=== PATIENT | male | born 1945 | race Caucasian/White ===

== ENCOUNTER → 2024-01-25 09:55 | Outpatient (REF) | payer MEDICARE, BC, SELFPAY | LOC: DHCBS HW 09:55 | PROVIDERS: ATTENDING PHYSICIAN Internal Medicine Cardiovascular Disease; FAMILY PHYSICIAN Family Medicine | DX: R42 Dizziness and giddiness (principal); I65.21 Occlusion and stenosis of right carotid artery | CPT/HCPCS: 93306; 93880 ==

== ENCOUNTER 2025-02-26 12:21 | Observation (INO) | payer MEDICARE, BC, SELFPAY ==
[2025-02-26] VITALS (14 sets, daily range): BP systolic 93–180; BP diastolic 53–100; PULSE 83–99; BMI 21.7; BMI 20.8
--- NOTE | 2025-02-26 09:16 | EDRN ---
Dr. Montenegro in room w/ pt at this time.
--- NOTE | 2025-02-26 09:24 | ED.GENMED ---
History of Present Illness
General
Chief Complaint: Weakness
Source: patient
Exam Limitations: none
Time Seen by Provider: 02/26/25 09:15
History of Present Illness
History of Present Illness:
See MDM
Past History
Past History
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
ED Past Surgical History: Appendectomy, Bowel resection (Left hemicolectomy) and Other (Cataract removal); Negative Cardiac
Social History
Tobacco: Non-smoker
Alcohol: Occasional
Drug: None
Personal:
Living: with family
Employment: Employed
Family History
Family History: Hypertension and CAD
Phy Exam
Physical Exam
Physical Exam:
See MDM
Scores
NIH Stroke Score
Level of Consciousness: 0 - Alert
LOC Questions: 0-Answers both correctly
LOC Commands: 0-Performs both correctly
Best Horizontal Gaze: 0-Normal
Visual Wang: 0=Normal, no visual loss
Facial Palsy: 0=Normal, symmetrical
Motor - Right Arm: 0=No drift 10 seconds
Motor - Left Arm: 0=No drift 10 seconds
Motor - Right Le-No drift 5 seconds
Motor - Left Le-No drift 5 seconds
Limb Ataxia: 0-Absent
Sensation: 0-Normal
Best Language: 0-No aphasia
Dysarthria: 0-Normal
Extinction and Inattention: 0-No abnormality
NIH Total Score:: 0
Course
Orders/Labs/Results
Orders:
Orders
02/26/25 09:21
CT Head W/o Iv Contrast Urgent
Comment:
Reason For Exam: fall, leaning to R, intermittent aphasia
Urinalysis Reflex To Culture Urgent
02/26/25 09:22
Electrocardiogram (*1) Urgent
Reason for Study: Fatigue / Weakness
EKG- Treatment ONCE
02/26/25 09:35
Complete Blood Count/With Diff Urgent
Comprehensive Metabolic Panel Urgent
02/26/25 09:49
DIETARY IP CONSULT Routine
Reason for Consult: failed swallow test
Speech Therapy Eval & Treat Urgent
02/26/25 Lunch
NPO
Reason for opting out of [employer] order writing: Provider Decision
Allow oral meds: No
Allow clear liquids: No
NPO with Ice Chips: No
02/26/25 10:22
0.9% Sodium Chloride 1000 ml [Nss] 1,000 ml IV BOLUS
Abnormal Lab Results
02/26/25
09:35
RBC 4.06 L 10^6/uL
(4.70-6.10)
Hgb 11.6 L g/dL
(13.0-18.0)
Hct 35.8 L %
(39.0-52.0)
MCHC 32.4 L g/dL
(33.0-37.0)
MPV 11.4 H fL
(7.4-10.4)
Absolute Lymphs (auto) 0.9 L 10^3/uL
(1.2-3.4)
Neutrophils % 81.2 H %
(42.2-75.2)
Lymphocytes % 13.5 L %
(20.5-51.1)
BUN 39 H mg/dl
(9-20)
Creatinine 1.5 H mg/dL
(0.7-1.3)
Glucose 124 H mg/dl
(70-99)
02/26/25 09:35
02/26/25 09:35
Vital Signs
Initial and Last Documented VS:
Initial Vital Signs
Temp Pulse Resp BP Pulse Ox
97.4 F 85 20 106/53 96
02/26/25 09:05 02/26/25 09:05 02/26/25 09:05 02/26/25 09:05 02/26/25 09:05
Last Documented Vital Signs
Temp Pulse Resp BP Pulse Ox
97.4 F 96 14 173/96 98
02/26/25 09:05 02/26/25 10:12 02/26/25 10:12 02/26/25 10:11 02/26/25 09:53
MDM/Problems Addressed
Differential Diagnosis Includes:
HPI and MDM Narrative:
79-year-old male presenting for evaluation of fatigue and visual hallucinations. Patient does have a history of Parkinson's. Since yesterday, he has had increased weakness. He is leaning to his right. He has had frequent falls. His tremor is
worse.
On exam, patient is sitting in bed comfortably. He is in no acute distress. However, he does have a visual tremor to both hands. His NIH stroke scale is 0 but given that he was leaning to his right, I questioned any speech issues. Over the past
month, patient states he has had word finding issues.
He denies any urinary symptoms.
Will obtain CT head given fall and strokelike symptoms. Will obtain basic blood work and ultimately admit.
Physical exam
General: Well appearing and non-toxic
HEENT: protecting airway
Neck: appears supple
CV: No evidence of cyanosis. Regular rate and rhythm
Resp: No accessory muscle use
Abd: Non-distended
Extremities: No deformities
Neuro: alert. Tremors to both hands. No focal deficits
Psych: Normal affect
Skin: Intact
Problems Addressed including Acute and Chronic Conditions affecting care:
1. Generalized fatigue and frequent falls
Acuity: acute
Prognosis: stable
Details: Potentially worsening of his chronic Parkinson's. However, will obtain CT head given word finding issues and leaning to the right. Will obtain basic blood work and urinalysis
2. Acute kidney injury
Acuity: acute
Prognosis: stable
Details: Likely in setting of poor p.o. intake. Will give IV fluids
Updates
10 AM nursing indicating that patient is failing the swallow test
CT head negative. Patient found to have mild dehydration. Will give IV fluids and admit
Differential Diagnosis (but not limited to): Stroke, intracranial hemorrhage, worsening Parkinson's, UTI
Testing considered: Chest x-ray but he denies shortness of breath or cough
Drug therapy (if applicable): OTC meds, please see d/c instruction regarding Rx drugs
Amount and/or Complexity of Data Reviewed
Clinical info obtained from: Patient and
External data reviewed: N/A
Labs I independently reviewed (but not limited to): Elevated creatinine
Radiology: The CT scan was personally and independently reviewed. In addition, official CT report reviewed.
Pulse Ox: not hypoxic
EKG independently reviewed: Sinus rhythm, normal axis, no STEMI
Airport Duty Manager: N/A
Critical Care: N/A
Risk of Complication:
Social Determinants of health: Good social support
Discussed with other providers: Hospitalist
Escalation of Care includes Admit/Obs: Given the strokelike symptoms and dehydration, will admit
Occasional wrong word or 'sound a like' substitutions may have occurred due to the inherent limitations of voice recognition software. Read the chart carefully and recognize, using context, where substitutions have occurred.
*Critical Care Note
Total Time (30-74mins, 75-104mins- exclusive of procedures): Not Applicable
ED Attending Note
-
Portions of this chart may have been created with voice recognition software.� Occasional wrong word or��sound alike� substitutions may have occurred due to the inherent limitations of voice recognition software.
Discharge Plan
Departure
Patient Disposition: Admit
Date of Disposition: 02/26/25
Time of Disposition: 10:26
Admit to: Telemetry
Presentation/result/management discussed w/ accepting MD/DO: Hospitalist
Discharge Problem:
Weakness, JENNY (acute kidney injury)
Prescriptions:
No Action
multivitamin [Daily Vitamin] 1 EACH tablet
1 ea PO DAILY
atorvastatin 20 MG tablet
20 mg PO HS
sertraline 50 MG tablet
50 mg PO DAILY
Eliquis 5 MG tablet
5 mg PO BID
finasteride 5 MG tablet
5 mg PO DAILY
Referrals:
Shelby Mueller DO [Family Provider] -
Interventions
Interventions:
*Risk Screen - Suicide Last Done: 02/26/25 09:43
*General Assessment Last Done: 02/26/25 09:43
*Neglect/Abuse Screening Last Done: 02/26/25 09:43
*ED- Fall Risk Assessment Last Done: 02/26/25 09:43
*ED COVID-19 Vaccine History Last Done: 02/26/25 09:43
ED- Cardiac Assessment Last Done: 02/26/25 09:44
ED- Neurological Assessment Last Done: 02/26/25 09:48
ED- Pulmonary Assessment Last Done: 02/26/25 09:44
Discharge Date and Time
Print Language: CYMRAES
[2025-02-26 09:46] LABS: % Basophils 0.2 % (0-2); % Eosinophils 0.2 % (0-6); % Immature Granulocytes 0.3 % (0-0.5); % Lymphocytes 13.5 % (20.5-51.1); % Monocytes 4.6 % (1.7-9.3); % Neutrophils 81.2 % (42.2-75.2); Absolute Lymphocytes 0.9 10^3/uL (1.2-3.4); Absolute Monocytes 0.3 10^3/uL (0.1-0.6); Absolute Neutrophils 5.2 10^3/uL (1.4-6.5); Hematocrit 35.8 % (39.0-52.0); Hemoglobin 11.6 g/dL (13.0-18.0); Mean Corp Hgb Conc. 32.4 g/dL (33.0-37.0); Mean Corpuscular Hgb 28.6 pg (27.0-31.0); Mean Corpuscular Volume 88.2 fL (80.0-94.0); Mean Platelet Volume 11.4 fL (7.4-10.4); Nucleated Red Blood Cells % 0 % (-); Platelet Count 162 10^3/uL (130-400); Red Blood Cell Count 4.06 10^6/uL (4.70-6.10); Red Cell Dist. Width 12.9 % (11.5-14.5); White Blood Cell Count 6.4 10^3/uL (4.8-10.8)
[2025-02-26 10:06] LABS: ALT (SGPT) 29 U/L (0-50); AST (SGOT) 38 U/L (17-59); Albumin 4.4 g/dl (3.5-5.0); Alkaline Phosphatase 72 U/L (38-126); Blood Urea Nitrogen 39 mg/dl (9-20); Calcium 9.7 mg/dl (8.4-10.2); Carbon Dioxide 25 mmol/L (22-30); Chloride 106 mmol/L (98-107); Estimated Creatinine Clearance 40 ml/min; Glucose 124 mg/dl (70-99); Potassium 4.4 mmol/L (3.5-5.1); Sodium 140 mmol/L (135-145); Total Protein 7.2 g/dl (6.3-8.2); eGFR 47.65
[2025-02-26] MEDS: NSS 1000 IV (10:30)
--- NOTE | 2025-02-26 10:30 | EDRN ---
Dr. Montenegro in to see pt and speak w/ pt and family at this time.
--- NOTE | 2025-02-26 10:32 | EDRN ---
Dr. Montenegro in to see pt at this time
--- NOTE | 2025-02-26 10:40 | PTOTSP ---
Speech Language Pathology
Pt seen for clinical bedside swallow evaluation. Per , pt typically coughs with breakfast. Pt stated he thinks this happens occasionally and mostly with liquids. Only noted in the last month. No PNA hx per pt/family. This date, coughing
noted with RN swallow screen, prompting HEAD BATCHER consult. P.O. trials of puree, regular solids, and thin liquids provided. Adequate mastication, bolus formation, and A-P transit noted with no oral residue. No overt signs of aspiration. Instrumental
swallowing assessment appropriate given Parkinson's disease and reports of intermittent coughing with P.O. at home. Discussed FEES vs VSE. Pt agreeable to VSE.
Recommend:
(1) VSE 02/27
(2) Regular solids/thin liquids at this time
(3) Aspiration precautions: sit upright, slow rate, single sips only
(4) Meds as tolerated (may be best tolerated whole in puree)
(5) HEAD BATCHER to continue to follow
--- NOTE | 2025-02-26 10:40 | EDRN ---
Pt failed swallow test and speech therapy ordered. Speech therapist in room w/pt.
--- NOTE | 2025-02-26 10:57 | CON.NEURO ---
Neuro Assessment/Plan
Assessment
Prior diagnosis of Parkinsonism with severe orthostasis
Newly experiencing hallucinations with worsening confusion (in the past month)
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 Hallucinations and orthostasis are typical of end-stage parkinsonism
Plan
Replace midodrine with fludrocortisone due to variable response
Continue carbidopa/levodopa presumed to be 25/100 extended release dosed before meals
Patient may benefit from secondary medication including opicapone to provide longer acting benefit from the use of carbidopa/levodopa
Rehabilitation evaluations
Follow orthostatic blood pressures
Case management for possible placement may be needed
Continue apixaban for stroke risk
Unclear reason for the use of aspirin at this time, will discontinue
Consideration for hospice may also be given
Will follow pending results
Consultation
Order
Date of Consultation: 02/26/25
Requesting Provider: Hospitalist
Reason for Consult: PD and falling
Subjective/Objective
Subjective Data
Date of Service: February 26, 2025
Right-Handed
Patient underwent MRI of the brain in 2016
He was diagnosed with Parkinson's with a differential diagnosis of multiple system atrophy in January 2024 secondary to generalized shaking and dizziness. The patient was found to have significant orthostatic hypotension at the time of diagnosis at
[facility]. He was initiated on carbidopa levodopa CR and had improvement of tremors. The patient was described as having falling beginning in 2020. Began using a walker routinely since 02/2024, episodic use of wheelchair.
Patient was given either Midodrine 2.5 mg or Lopressor as needed, not of assistance. No assistance with abdominal binder. Didn't change diet.
Typically falling to the right.
Last night began having visual hallucinations. Confusion started in 11/2024, worsening in past month.
This morning, had increased confusion, worsening PD, significant other unable to take care of him at home. PT helping at home usually.
Falling out of a chair typically.
Objective Data
Vital Signs
Temp Pulse Resp BP Pulse Ox
36.3 C 97 16 173/96 98
02/26/25 09:05 02/26/25 10:30 02/26/25 10:30 02/26/25 10:11 02/26/25 10:30
Lab Results
02/26/25 09:35
02/26/25 09:35
Sodium 140 mmol/L (135-145) 02/26/25 09:35
Potassium 4.4 mmol/L (3.5-5.1) 02/26/25 09:35
BUN 39 mg/dl (9-20) H 02/26/25 09:35
Glucose 124 mg/dl (70-99) H 02/26/25 09:35
Calcium 9.7 mg/dl (8.4-10.2) 02/26/25 09:35
Patient Allergies
No Known Allergies Allergy (Verified 02/26/25 09:08)
Review of Systems
-
History Source: Patient
All other systems: Reviewed and negative
EENT: Swallowing Difficulty; Negative Decreased Vision
Respiratory: Negative Trouble Breathing
Cardiac: Negative Chest Pain
Abdomen/GI: Diarrhea
Genitourinary: Incontinence
Musculoskeletal: Negative Back Pain or Neck Pain
Neuro: Dizzy; Negative Headache
Physical Exam
-
General: No Apparent Distress and Appears Stated Age
Eyes: Round OU, [place] Conjunctivae and No Ptosis
HEENT: Anicteric and Moist Mucous Membranes
Neck: Full Range of Motion
Respiratory: No Dyspnea
Cardiac: No JVD
GI: Non-distended
Skin: Unremarkable
Extremities: No Clubbing, No Cyanosis and No Edema
Psych: Intact Judgement/Insight
Extended Neurological Exam
Mood & Affect: Mood Unremarkable and Affect Unremarkable
Attention Span & Concentration: Awake, Alert, Interactive and Moderate Difficulty with 2 Step Request
Memory: Able to Recall (Month and year), Reduced (For correct holiday order) and Unable to Recall Personal History (With accuracy)
Tremor: Head Tremor Absent, Distal, Amplitude (Low), Intermittent and With Action; Negative At Rest
Involuntary Movement: None
Speech: Mildly Reduced Output and Hoarse (Mildly)
Cranial Nerve II: Left Eye: Pupillary Reactivity Unremarkable, Pupillary Size Unremarkable and Visual Wang Intact
Cranial Nerve II: Right Eye: Pupillary Reactivity Unremarkable, Pupillary Size Unremarkable, Visual Wang Intact and Smaller than Contralateral
Cranial Nerves III, IV, : Extraocular Movement: Extraocular Movement Full in all Directions; Negative Slow Saccades (Irregular saccades)
Cranial Nerve VII: Facial Symmetry: Normal Facial Symmetry
Cranial Nerve VIII: Hearing: Unremarkable Hearing to Normal Conversational Volume
Cranial Nerves IX, X: Palate Movement: Palate Elevation Symmetric
Cranial Nerve XI: Shoulder Shrug: Unremarkable
Cranial Nerve XII: Tongue Protusion: Midline
Muscle Strength, Overall: Spontaneously Moves
Muscle Bulk & Tone: Bulk Unremarkable and Tone Unremarkable
Pronator Drift: No Drift in Upper Extremities and No Drift in Lower Extremities
Deep Tendon Reflexes: Unremarkable Throughout
Touch Sensation: Double Simultaneous Stimulation Unremarkable
Coordination: Bpxggy-aggc-[id number] Testing Unremarkable
Babinski Sign: Absent Bilaterally
Data Reviewed
-
CT Head: Report Reviewed
Orthostatic Testing: Ordered
Labs: Report Reviewed
Reviewed with: Physician, Patient and Family
Old Records: Summarized
Medications
-
Active Medications
Generic Name Dose Route Start Last Admin
Trade Name Freq PRN Reason Stop Dose Admin
Sodium Chloride 1,000 mls @ 1,000 mls/hr 02/26/25 10:22 02/26/25 10:30
Nss IV 02/26/25 11:21 1,000 mls
BOLUS ONE Administration
Home Medications
�Medication �Instructions �Recorded
atorvastatin 20 mg tablet 20 mg PO HS 03/25/15
multivitamin (Daily Vitamin tablet) 1 ea PO DAILY 03/25/15
sertraline 50 mg tablet 50 mg PO DAILY 03/25/15
apixaban 5 mg tablet (Eliquis) 5 mg PO BID 11/07/16
finasteride 5 mg tablet 5 mg PO DAILY 08/26/20
Past History
Past History
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
hypotension)
ED Past Surgical History: Appendectomy, Bowel resection (Left hemicolectomy) and Other (Cataract removal); Negative Cardiac
Social History
Tobacco: Non-smoker
Alcohol: Occasional
Drug: None
Personal:
Living: with family
Employment: Employed
Family History
Family History: Hypertension and CAD
--- NOTE | 2025-02-26 11:08 | HPS.HSE ---
Family Physician
-
Family Physician: Shelby Mueller
Chief Complaint
-
Weakness
History of Present Illness
79 y/o M with PMHx:
PAF s/p ablation with sinus bradycardia
CVA 04/2011
Essential hypertension
Hyperlipidemia
Parkinson's disease with resulting autonomic dysfunction and orthostatic hypotension
who p/w CC weakness. History is obtained from the patient, , and daughter. Over the last month the patient has had increasing falls and weakness. He tends to lean to the right. He has had increased tremors even with compliance with his
Sinemet. The patient was at the daughter's house over the weekend. Today, when he was being taken back to his own home, he was witnessed to have worsening tremors. No other acute or new symptoms.
Medical History
Past Medical History
Past Medical History: Reports Other (as per HPI)
Past Surgical History: Reports Other (N/A)
Social History
Tobacco: Non-smoker
Alcohol: Occasional
Drug: None
Family History
Family History: Not pertinent
Allergies / Home Medications
Allergies reflects when Allergies were last updated in [employer].
Home Medications with original date entered in [employer]
Allergy/Medication List:
Allergies
Allergy/AdvReac Type Severity Reaction Status Date / Time
No Known Allergies Allergy Verified 02/26/25 09:08
Home Medications
atorvastatin 20 mg tablet 20 mg PO HS 03/25/15
sertraline 50 mg tablet 25 mg PO DAILY 03/25/15
apixaban 5 mg tablet (Eliquis) 5 mg PO BID 11/07/16
finasteride 5 mg tablet 5 mg PO DAILY 08/26/20
aspirin 81 mg tablet,delayed release 81 mg PO DAILY 02/26/25
carbidopa ER 25 mg-levodopa 100 mg tablet,extended release 1 tab PO TID 02/26/25
midodrine 2.5 mg tablet 2.5 mg PO BID 02/26/25
Review of Systems
-
History Source: Patient
A 12 point ROS was completed and negative except as noted: Yes
Physical Exam
Vital Signs
Vital Signs
Temp Pulse Resp BP Pulse Ox
97.4 F 97 16 173/96 98
02/26/25 09:05 02/26/25 10:30 02/26/25 10:30 02/26/25 10:11 02/26/25 10:30
Physical Exam
General: Other (.)
Laboratory Results
-
02/26/25 09:35
02/26/25 09:35
Laboratory Results
Total Bilirubin 1.0 mg/dl (0.2-1.3) 02/26/25 09:35
AST 38 U/L (17-59) 02/26/25 09:35
ALT 29 U/L (0-50) 02/26/25 09:35
Alkaline Phosphatase 72 U/L (38-126) 02/26/25 09:35
Impression/Plan
-
Gen: NAD, Awake and alert
Eyes: EOMI, PERRLA, no scleral icterus.
Neck: supple.
CV: RRR, +S1/S2, no m/r/g.
Resp: CTAB, no rales, wheezes, or rhonchi.
Abd: +BS, soft, NT, ND
Skin: No rashes.
Neuro: CN 2-12 intact, resting tremor, masked facies
Psych: Normal mood and affect.
CT head: No acute intracranial abnormality.
Weakness:
-underlying parkinson's disease
-with frequent falls, leaning towards the right, and word finding issues over the last 30 days
-NIH 0 in ER
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 He has had to be encouraged to consume enough fluids.
-c/s neuro
-Orthostatic VS POS in ER, cont Midodrine PRN for now
-check MRI brain
-tele
-neurochecks
-PT/OT
-speech has recommended VSS
JENNY:
-Cr 1.5, was 1.2 in 2019
-1L NS ordered in ER
PAF:
-s/p ablation in sinus bradycardia
-cont Eliquis
HLD/prior CVA:
-cont ASA/statin
DNR - confirmed with pt//daughter in ER.
Heparin
--- NOTE | 2025-02-26 11:32 | EDRN ---
Attempted orthostatic VS. unable to do standing as pt was unable to stand at all. Dr. Souza showed lying and sitting results as he came in just after attempt.
--- NOTE | 2025-02-26 11:35 | EDRN ---
Dr. Figueroa in w/ pt at this time.
[2025-02-26 11:42] LABS: Urine Albumin 1+ (Neg - Trace); Urine Bilirubin Negative (Negative); Urine Character Clear (Clear); Urine Color Yellow; Urine Glucose Negative (Negative); Urine Ketone 1+ (Negative); Urine Leukocyte Negative (Negative); Urine Nitrite Negative (Negative); Urine Occult Blood 1+ (Negative); Urine Urobilinogen Negative (Neg - 1+)
[2025-02-26 12:10] LABS: Urine Red Blood Cell 0-2 /HPF (0-2)
[2025-02-26 12:11] LABS: Urine Bacteria Few (Negative)
[2025-02-26] MEDS: FLORINEF PO (13:44)
--- NOTE | 2025-02-26 14:18 | PTCARENOTE ---
Received pt from ED into room 401-2. Pt pulled over to bed. AAOx3. Confused and forgetful at times. Pt answered all admission questions with assistance from pt's daughter. R FA skin tear cleaned and dressed. Oriented to room, bed alarm on patient,
call alcantar within reach, bed in lowest position.
--- NOTE | 2025-02-26 16:05 | CM ---
Patient was admitted under OBS, BOLAND letter explained and signed. trade show manager reviewed patient's chart and met with patient and patient lives with his spouse in a multilevel home with 3 steps to enter, 17 steps to bed and bathroom, patient has a
chair glide, requires sone assist with adl's and uses a walker with ambulation, patient has a caregiver from [place], 9:30am to 1:30, spouse assists patient at times.
Patient was diagnosed with Parkinson's about 2 years ago.
PCP: Shelby Mueller
Pharmacy: [facility]
Plan; Patient would benefit from PT/OT evaluations to assist with discharge planning.
[2025-02-26] MEDS: SINEMET CR 25-100 (EXTENDED RELEASE) 1 TABLET PO (16:43)
[2025-02-26] MEDS: LIPITOR 20 MG PO (20:04)
[2025-02-26] MEDS: ELIQUIS 5 MG PO (20:04)
[2025-02-27] VITALS (9 sets, daily range): BP systolic 114–202; BP diastolic 67–112; PULSE 62–84; O2SAT 99
[2025-02-27] MEDS: SINEMET CR 25-100 (EXTENDED RELEASE) 1 TABLET PO ×3 (06:31→15:48)
[2025-02-27 07:50] LABS: Blood Urea Nitrogen 37 mg/dl (9-20); Calcium 9.6 mg/dl (8.4-10.2); Carbon Dioxide 27 mmol/L (22-30); Chloride 106 mmol/L (98-107); Estimated Creatinine Clearance 49 ml/min; Glucose 108 mg/dl (70-99); HDL Cholesterol 74 mg/dl; LDL Cholesterol, Calculated 80 mg/dl; Sodium 139 mmol/L (135-145); Total Cholesterol 166 mg/dl (50-199); Triglyceride 63 mg/dl (10-149); Very Low Density Lipoprotein 12 mg/dl (0-30); eGFR > 60.00
[2025-02-27] MEDS: FLORINEF 0.1 MG PO ×2 (07:58→10:10)
[2025-02-27] MEDS: ELIQUIS 5 MG PO ×2 (07:58→20:05)
[2025-02-27] MEDS: ZOLOFT 25 MG PO (07:58)
[2025-02-27] MEDS: PROSCAR 5 MG PO (07:58)
--- NOTE | 2025-02-27 08:27 | W.PN.NEURO.1 ---
Addendum entered and electronically signed by Sukhdeep Figueroa MD 02/27/25 10:50:
Studies reviewed.
I have personally examined the patient. I reviewed and agree with the YARN COMBER's Note.
My addenda:
Awake, alert, interactive. No acute distress.
Speech intact.
Follows 1-step requests w/ difficulty. No tremor.
Extra-ocular movements grossly intact.
Facial movements full and symmetric. Hearing intact to normal conversational volume.
Normal UE movements bilaterally.
Neck: full ROM.
Chest: no dyspnea
Heart: no JVD
Ext: (-) Clubbing, (-) Cyanosis, (-) Edema
IMPRESSIONS/RECOMMENDATIONS:
Progressive worsening of gait secondary to orthostatic hypotension associated with parkinsonism
Advance fludrocortisone from 0.1 to 0.2 mg daily
Patient should avoid sleeping flat and instead sleep at a 30 degree angle to avoid supine hypertension
Continuous use of compression stockings, patient did not tolerate abdominal binder use
Advancing fluid intake may be of some assistance
Likely would benefit from hospice evaluation
Follow orthostatic blood pressures
Advance atorvastatin from 20 to 40 mg due to prior history of stroke
Will continue to follow peripherally.
Original Note:
Documented by User: Esperanza Doherty NP 02/27/25 09:58
Today's Communication / Plan
-
Continue fludrocortisone and increase from 0.1 mg to 0.2 mg daily
Continue carbidopa/levodopa presumed to be 25/100 extended release dosed before meals
Patient may benefit from secondary medication including opicapone to provide longer acting benefit from the use of carbidopa/levodopa
Encourage fluids and compression stockings
Follow orthostatic blood pressures
Case management for possible placement may be needed
Rehabilitation evaluations, patient extremely unsteady and huge fall risk
Continue apixaban for stroke risk
Current LDL 80, goal <70 will increase Atorvastatin from 20 mg to 40 mg
Brain MRI pending
Consideration for hospice may also be given
Will follow pending results
Neuro Assessment/Plan
Assessment
Prior diagnosis of Parkinsonism with severe orthostasis
Newly experiencing hallucinations with worsening confusion (in the past month)
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 Hallucinations and orthostasis are typical of end-stage parkinsonism
Subjective/Objective
Subjective Data
Date of Service: February 27, 2025
Patient seen today in room and trying to get out of bed with assistance x2. Patient unable to stand and fell back into bed striking back of head against the side of the bed. No loss of consciousness, no complaints of pain. Patient to get brain MRI
today. Patient endorses dizziness when going from sit to stand which is demonstrated by precipitous drop in blood pressure.
Objective Data
Vital Signs
Temp Pulse Resp BP Pulse Ox
98 F 78 17 151/90 97
02/27/25 08:11 02/27/25 03:00 02/27/25 08:11 02/27/25 03:00 02/27/25 08:11
Lab Results
02/26/25 09:35
02/27/25 05:58
Sodium 139 mmol/L (135-145) 02/27/25 05:58
Potassium 4.0 mmol/L (3.5-5.1) 02/27/25 05:58
BUN 37 mg/dl (9-20) H 02/27/25 05:58
Glucose 108 mg/dl (70-99) H 02/27/25 05:58
Calcium 9.6 mg/dl (8.4-10.2) 02/27/25 05:58
LDL Cholesterol, Calc 80 mg/dl 02/27/25 05:58
Patient Allergies
No Known Allergies Allergy (Verified 02/26/25 09:08)
LDL Level: Statin dose adjusted (LDL 80)
Review of Systems
-
History Source: Patient
All other systems: Reviewed and negative
EENT: Swallowing Difficulty; Negative Decreased Vision
Respiratory: Negative Trouble Breathing
Cardiac: Negative Chest Pain
Abdomen/GI: Diarrhea
Genitourinary: Incontinence
Musculoskeletal: Negative Back Pain or Neck Pain
Neuro: Dizzy; Negative Headache
Physical Exam
-
General: No Apparent Distress and Appears Stated Age
Eyes: Round OU, [place] Conjunctivae and No Ptosis
HEENT: Anicteric and Moist Mucous Membranes
Neck: Full Range of Motion
Respiratory: No Dyspnea
Cardiac: No JVD
GI: Non-distended
Skin: Unremarkable
Extremities: No Clubbing, No Cyanosis and No Edema
Psych: Intact Judgement/Insight
Extended Neurological Exam
Mood & Affect: Mood Unremarkable and Affect Unremarkable
Attention Span & Concentration: Awake, Alert, Interactive and Moderate Difficulty with 2 Step Request
Memory: Able to Recall (Month and year), Reduced (For correct holiday order) and Unable to Recall Personal History (With accuracy)
Tremor: Head Tremor Absent, Distal, Amplitude (Low), Intermittent and With Action; Negative At Rest
Involuntary Movement: None
Speech: Mildly Reduced Output and Hoarse (Mildly)
Cranial Nerve II: Left Eye: Pupillary Reactivity Unremarkable, Pupillary Size Unremarkable and Visual Wang Intact
Cranial Nerve II: Right Eye: Pupillary Reactivity Unremarkable, Pupillary Size Unremarkable, Visual Wang Intact and Smaller than Contralateral
Cranial Nerves III, IV, : Extraocular Movement: Extraocular Movement Full in all Directions; Negative Slow Saccades (Irregular saccades)
Cranial Nerve VII: Facial Symmetry: Normal Facial Symmetry
Cranial Nerve VIII: Hearing: Unremarkable Hearing to Normal Conversational Volume
Cranial Nerves IX, X: Palate Movement: Palate Elevation Symmetric
Cranial Nerve XI: Shoulder Shrug: Unremarkable
Cranial Nerve XII: Tongue Protusion: Midline
Muscle Strength, Overall: Spontaneously Moves
Muscle Bulk & Tone: Bulk Unremarkable and Tone Unremarkable
Pronator Drift: No Drift in Upper Extremities and No Drift in Lower Extremities
Deep Tendon Reflexes: Unremarkable Throughout
Coordination: Ihhzza-tpxr-ghobby Testing Unremarkable
Babinski Sign: Absent Bilaterally
Gait & Station: Other (gait deferred)
Modified Kimble Score (MRS)
-
Modified Latricia Scale (mRS): Moderately severe disability. Unable to attend to bodily needs/walk.
Score: 4
Data Reviewed
-
CT Head: Report Reviewed
MRI Head: Ordered
Lipid Profile: Report Reviewed
Reviewed with: Physician, Nurse and Patient
Old Records: Summarized

Documented by User: Sukhdeep Figueroa MD 02/27/25 10:31
Today's Communication / Plan
-
Continue fludrocortisone and increase from 0.1 mg to 0.2 mg daily
Continue carbidopa/levodopa 25/100 extended release dosed before meals
Patient may benefit from secondary medication including opicapone to provide longer acting benefit from the use of carbidopa/levodopa
Encourage fluids and compression stockings
Follow orthostatic blood pressures
Case management for possible placement may be needed
Rehabilitation evaluations, patient extremely unsteady and huge fall risk
Continue apixaban for stroke risk
Current LDL 80, goal <70 will increase Atorvastatin from 20 mg to 40 mg
Brain MRI pending
Consideration for hospice may also be given
Will follow pending results
Modified Kimble Score (MRS)
-
Score: 4
[2025-02-27 08:44] LABS: Hepatitis C Antibody Negative (Negative)
--- NOTE | 2025-02-27 08:50 | PTOTSP ---
Speech Language Pathology
VIDEOFLUOROSCOPIC SWALLOWING EXAMINATION (VSE) completed. Oropharyngeal swallow WFL. Transient supraglottic penetration with consecutive straw sips of thin liquids noted. No persistent penetration or any aspiration noted. Trace to mild amount of
pharyngeal residue.
Recommend:
(1) Continue regular solids/thin liquids
(2) General aspiration precautions
(3) Meds as tolerated
(4) HIGHER LEVEL TEACHING ASSISTANT to continue to follow pending results of MRI
--- NOTE | 2025-02-27 09:43 | W.PN.HOSP.TC ---
Today's Communication/Plan
-
see plan
Assessment / Plan
Assessment / Plan
Gen: NAD, Awake and alert
Eyes: EOMI, PERRLA, no scleral icterus.
Neck: supple.
CV: irreg/irreg, +S1/S2, no m/r/g.
Resp: CTAB anteriorly, no rales, wheezes, or rhonchi.
Abd: +BS, soft, NT, ND
Skin: No rashes.
Neuro: CN 2-12 intact, resting tremor, cogwheel rigidity, masked facies
Psych: Normal mood and affect.
CT head: No acute intracranial abnormality.
Weakness:
-underlying parkinson's disease
-with frequent falls, leaning towards the right, and word finding issues over the last 30 days
-NIH 0 in ER
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 He has had to be encouraged to consume enough fluids.
-neuro following
-Orthostatic VS POS in ER, cont Florinef
-check MRI brain
-tele
-neurochecks
-PT/OT
-speech has recommended VSS
-pt's recent history and presenting symptoms likely due to advanced/end stage Parkinson's disease
JENNY:
-Cr 1.5, was 1.2 in 2019
-1L NS ordered in ER
-resolved
PAF:
-s/p ablation in sinus bradycardia
-cont Eliquis
HLD/prior CVA:
-cont ASA/statin
DNR - confirmed with pt//daughter in ER.
Heparin
Anticipated Discharge: Within 24 hours
Subjective/Interval History
-
Date of Service: February 27, 2025
No new complaints.
Objective Data
-
Labs:
Laboratory Results
02/27/25
05:58
Sodium 139
Potassium 4.0
Chloride 106
Carbon Dioxide 27
BUN 37 H
Creatinine 1.2
Glucose 108 H
Calcium 9.6
Vital Signs:
Vital Signs
Temp Pulse Resp BP Pulse Ox
98 F 78 17 151/90 97
02/27/25 08:11 02/27/25 03:00 02/27/25 08:11 02/27/25 03:00 02/27/25 08:11
I&O
02/26/25 02/27/25 02/28/25
06:59 06:59 06:59
Intake Total 240 / 240
Output Total 1025 / 1025
Balance -785 / -785
--- NOTE | 2025-02-27 10:53 | CM ---
PT OT ordered . Pt has not bee seen yet.
Pt is assisted by spouse and care management associate at home.
Discharge planning ongoing.
PLAN Awaiting PT OT evals
[2025-02-27] MEDS: LIPITOR 40 MG PO (17:17)
[2025-02-27 21:02] LABS: Glucose - Point of Care 121 mg/dl (70-99)
[2025-02-28 03:42] VITALS: BP 180/91
--- NOTE | 2025-02-28 03:45 | PTCARENOTE ---
Pt's BP 180/91. Pt asymptomatic. Manual BP 180/92. Bladder scanned for 217ml. HR: 50s. House UTILITY GELATIN MAKER made aware, no orders at this time.
[2025-02-28 04:25] VITALS: BP 180/92
[2025-02-28 07:27] VITALS: BP 194/108
[2025-02-28 07:29] VITALS: BP 194/108; BP 88/72; PULSE 90; PULSE 94
[2025-02-28] MEDS: PROSCAR 5 MG PO (07:49)
[2025-02-28] MEDS: ZOLOFT 25 MG PO (07:49)
[2025-02-28] MEDS: FLORINEF 0.2 MG PO (07:50)
[2025-02-28] MEDS: SINEMET CR 25-100 (EXTENDED RELEASE) 1 TABLET PO ×3 (07:50→15:58)
[2025-02-28] MEDS: ELIQUIS 5 MG PO (07:50)
--- NOTE | 2025-02-28 08:48 | W.PN.NEURO.1 ---
Today's Communication / Plan
-
Consideration for hospice may also be given
Continue fludrocortisone
Continue carbidopa/levodopa presumed to be 25/100 extended release dosed before meals
Patient may benefit from secondary medication including opicapone to provide longer acting benefit from the use of carbidopa/levodopa
Neuro Assessment/Plan
Assessment
Prior diagnosis of Parkinsonism with extremely severe orthostasis
Newly experiencing hallucinations with worsening confusion (in the past month)
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 Hallucinations and orthostasis are typical of end-stage parkinsonism
Plan
Consideration for hospice may also be given
Continue fludrocortisone
Continue carbidopa/levodopa presumed to be 25/100 extended release dosed before meals
Patient may benefit from secondary medication including opicapone to provide longer acting benefit from the use of carbidopa/levodopa
Encourage fluids and compression stockings
Discontinue orthostatic blood pressures
Case management for possible placement may be needed
Rehabilitation evaluations; unlikely patient will be able to ambulate again
Continue apixaban for stroke risk
Current LDL 80, goal <70 will increase Atorvastatin from 20 mg to 40 mg
Will follow pending results
Subjective/Objective
Subjective Data
Date of Service: February 28, 2025
Objective Data
Vital Signs
Temp Pulse Resp BP Pulse Ox
36.6 C 90 20 194/108 98
02/28/25 07:27 02/28/25 07:27 02/28/25 07:27 02/28/25 07:27 02/28/25 07:27
Lab Results
02/26/25 09:35
02/27/25 05:58
Sodium 139 mmol/L (135-145) 02/27/25 05:58
Potassium 4.0 mmol/L (3.5-5.1) 02/27/25 05:58
BUN 37 mg/dl (9-20) H 02/27/25 05:58
Glucose 108 mg/dl (70-99) H 02/27/25 05:58
Calcium 9.6 mg/dl (8.4-10.2) 02/27/25 05:58
LDL Cholesterol, Calc 80 mg/dl 02/27/25 05:58
Patient Allergies
No Known Allergies Allergy (Verified 02/26/25 09:08)
Past History
Past History
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
hypotension)
ED Past Surgical History: Appendectomy, Bowel resection (Left hemicolectomy) and Other (Cataract removal); Negative Cardiac
Social History
Tobacco: Non-smoker
Alcohol: Occasional
Drug: None
Personal:
Living: with family
Employment: Employed
Family History
Family History: Hypertension and CAD
Medications
-
Medications:
Generic Name Dose Route Start Last Admin
Trade Name Freq PRN Reason Stop Dose Admin
Acetaminophen 650 mg 02/26/25 12:49
Acetaminophen 650 Mg Rectal Suppository RECTAL 03/26/25 12:48
Q4HPRN PRN
OTERO, mild pain, or temp >100.4F
Acetaminophen 650 mg 02/26/25 12:49
Acetaminophen 325 Mg Tablet PO 03/26/25 12:48
Q4HPRN PRN
OTERO, mild pain, or temp >100.4F
Apixaban 5 mg 02/26/25 20:00 02/28/25 07:50
Apixaban (Eliquis) 5 Mg Tablet PO 03/26/25 19:59 5 mg
BID JAMES Administration
Atorvastatin Calcium 40 mg 02/27/25 18:00 02/27/25 17:17
Atorvastatin (Lipitor) 40 Mg Tablet PO 03/27/25 17:59 40 mg
QPM JAMES Administration
Carbidopa/Levodopa 1 tablet 02/26/25 16:30 02/28/25 07:50
Carbidopa (25 Mg) Levodopa (100 Mg) Extended Release Tablet PO 03/26/25 16:29 1 tablet
AC JAMES Administration
Finasteride 5 mg 02/27/25 08:00 02/28/25 07:49
Finasteride 5 Mg Tablet PO 03/27/25 07:59 5 mg
DAILY JAMES Administration
Fludrocortisone Acetate 0.2 mg 02/28/25 08:00 02/28/25 07:50
Fludrocortisone Acetate 0.1 Mg Tablet PO 03/28/25 07:59 0.2 mg
DAILY JAMES Administration
Sertraline HCl 25 mg 02/27/25 08:00 02/28/25 07:49
Sertraline 25 Mg Tablet PO 03/27/25 07:59 25 mg
DAILY JAMES Administration
Sodium Chloride 0 flush 02/26/25 13:00
Sodium Chloride 0.9% (Flush) Syringe IV 03/26/25 12:59
PER PROTOCOL JAMES
--- NOTE | 2025-02-28 10:38 | W.PN.HOSP.TC ---
Addendum entered and electronically signed by Phong Souza MD 02/28/25 13:11:
Total time spent on d/c = 36 min. This included today's physical exam, progress note, review of laboratory and diagnostic data, preparation of discharge documents and prescriptions, and discussions about the pt's hospital course and discharge plan
with the patient and other medical chief technician involved in the patient's care.
Addendum entered and electronically signed by Phong Souza MD 02/28/25 13:11:
Total time spent on d/c = 36 min. This included today's physical exam, progress note, review of laboratory and diagnostic data, preparation of discharge documents and prescriptions, and discussions about the pt's hospital course and discharge plan
with the patient and other medical chief technician involved in the patient's care.
Addendum entered and electronically signed by Phong Souza MD 02/28/25 11:54:
The patient will need SNF rehab at discharge (max assist of 2).
Original Note:
Today's Communication/Plan
-
d/c
Assessment / Plan
Assessment / Plan
Gen: NAD, Awake and alert
Eyes: EOMI, PERRLA, no scleral icterus.
Neck: supple.
CV: RRR, +S1/S2, no m/r/g.
Resp: CTAB anteriorly, no rales, wheezes, or rhonchi.
Abd: +BS, soft, NT, ND
Skin: No rashes.
Neuro: CN 2-12 intact, resting tremor
Psych: Normal mood and affect.
CT head: No acute intracranial abnormality.
MRI brain: No acute intracranial abnormality within the limitations of motion artifact.
Weakness:
-underlying parkinson's disease
-with frequent falls, leaning towards the right, and word finding issues over the last 30 days
-NIH 0 in ER
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 He has had to be encouraged to consume enough fluids.
-neuro following
-Orthostatic VS POS in ER, cont Florinef
-MRI brain without acute CVA (limited by motion artifact)
-tele
-neurochecks
-PT/OT
-speech following, VSS done, rec regular solids/thins
-pt's recent history and presenting symptoms likely due to advanced/end stage Parkinson's disease
JENNY:
-Cr 1.5, was 1.2 in 2019
-1L NS ordered in ER
-resolved
PAF:
-s/p ablation in sinus bradycardia
-cont Eliquis
HLD/prior CVA:
-cont ASA/statin
DNR - confirmed with pt//daughter in ER.
Heparin
Medically cleared for d/c. Case management aware.
Anticipated Discharge: Today
Subjective/Interval History
-
Date of Service: February 28, 2025
No new complaints.
Objective Data
-
Vital Signs:
Vital Signs
Temp Pulse Resp BP Pulse Ox
97.8 F 90 20 194/108 98
02/28/25 07:27 02/28/25 07:27 02/28/25 07:27 02/28/25 07:27 02/28/25 07:27
I&O
02/27/25 02/28/25 03/01/25
06:59 06:59 06:59
Intake Total 240 / 240
Output Total 1025 / 1025 675 / 675
Balance -785 / -785 -675 / -675
--- NOTE | 2025-02-28 10:42 | PTCARENOTE ---
systolic bp 194. + orthostatics. Dr. Souza aware. no new orders. will monitor.
[2025-02-28 11:57] VITALS: BP 165/102
[2025-02-28 13:08] LABS: COVID-19 Antigen Negative (Negative)
--- NOTE | 2025-02-28 15:53 | DOWNTIME ---
There was a [employer] Client Senior Clinical Data Coordinator Downtime on 02/28/2025 from 1230 to 02/28/2025 at 1550. Downtime documentation of patient's care, including medication administrations, has been reconciled in the electronic record per guidelines. Refer to the
patient's paper chart under the miscellaneous tab to see printed paper medication records and downtime forms.
--- NOTE | 2025-02-28 15:53 | CM ---
PT OT indicated SNF.
Pt is observation .
Radha ramos said pt qualifies for [employer] waiver .
MD indicated pt ready for discharge today.
Spoke with offered [facility] waiver choices. She picked [facility] , [facility] and [facility]
All Placed in care port. [facility] has no bed.
[facility] had bed . Offered to family. Dgt requested call made to [facility] for bed . Layla called and she said no bed available.
Family notified . They picked [facility].
Covid done =negative.
Medical nec form completed as family requested.
[facility]
report [phone]
fax [phone]
PLAN To [facility]
[2025-02-28 15:55] VITALS: BP 145/87
[2025-02-28] MEDS: LIPITOR 40 MG PO (16:01)
--- NOTE | 2025-02-28 16:09 | PTCARENOTE ---
report given to gina keith rn
--- NOTE | 2025-02-28 16:15 | DOWNTIME ---
There was a [employer] Client Track Leader Downtime on 02/28/2025 from 1230 to 02/28/2025 at 1550. Downtime documentation of patient's care, including medication administrations, has been reconciled in the electronic record per guidelines. Refer to the
patient's paper chart under the miscellaneous tab to see printed paper medication records and downtime forms.
--- NOTE | 2025-03-01 14:18 | W.DCSUMMARY ---
Discharge Summary
Discharge Data
Date of Admission: 02/26/25
Date of Discharge: 02/28/25
-
Pending Results: No
Hospital Course
Primary diagnoses:
Weakness due to underlying Parkinson's disease
Orthostatic hypotension due to autonomic dysfunction due to Parkinson's disease
Secondary diagnoses:
Acute kidney injury
Paroxysmal atrial fibrillation
Hyperlipidemia
h/o CVA
Consultants:
Neurology
Imaging:
CT head: No acute intracranial abnormality.
MRI brain: No acute intracranial abnormality within the limitations of motion artifact.
Hospital course: 79 y/o M who presented with chief complaint of weakness as outlined in H&P done on admission. The patient had underlying advanced Parkinson's disease. He was having frequent falls, leaning towards the right, and word finding
issues over the 30 days prior to admission. NIH 0 in ER. The patient had a history of orthostatic hypotension due to autonomic dysfunction from Parkinson's disease as well as decreased oral intake in the past. He has had to be encouraged to
consume enough fluids. His orthostatic vital signs were positive in the ER. He was placed on Florinef. Brain imaging was without acute stroke. He was seen by physical therapy and Occupational Therapy. He was also seen by speech therapy and had
a video swallow done. He speech therapy recommended regular solids/thin liquids. The patient's presenting symptoms were likely due to advanced/end stage Parkinson's disease. He was discharged in medically stable condition.
Discharge Plan
-
Patient Disposition: [facility]/SNF
Discharge Diagnosis/Procedures: Orthostatic hypotension due to advanced Parkinson's disease
Condition: Fair
Diet: No restrictions
Activity: With assistance
Driving Restrictions: No driving
Referrals:
Shelby Mueller, DO [Family Provider] - in less than 1 week
Prescriptions:
New
atorvastatin 40 mg Tablet
40 mg PO QPM Qty: 0 0RF
sertraline 25 mg Tablet
25 mg PO DAILY Qty: 0 0RF
fludrocortisone 0.1 mg Tablet
0.2 mg PO DAILY Qty: 1 0RF
Continued
Eliquis 5 MG tablet
5 mg PO BID
finasteride 5 MG tablet
5 mg PO DAILY
carbidopa-levodopa 25-100 mg Tablet Extended Release
1 tab PO TID@1000,1400,1800
aspirin 81 mg Tablet,Delayed Release (Dr/Ec)
81 mg PO DAILY
acetaminophen [Tylenol] 325 mg Tablet
650 mg PO Q6HPRN PRN (Reason: mild pain)
loperamide 2 mg Tablet
2 mg PO BIDPRN PRN (Reason: diarrhea)
Discontinued
atorvastatin 20 MG tablet
20 mg PO HS
sertraline 50 MG tablet
50 mg PO DAILY
midodrine 2.5 mg Tablet
2.5 mg PO BID
Discharge Orders:
Discharge Patient (As Directed); Ordered 02/28/25
Ordered By: Phong Souza
Discharge Date and Time
Discharge Date/Time: 02/28/25 17:46
Print Language: MONGOLIAN
== END 2025-02-28 17:46 ==
LOC: 4 EAST ACU 12:21
PROVIDERS: ADMITTING PHYSICIAN Internal Medicine; CONSULT PHYSICIAN Psychiatry & Neurology Neurology; EMERGENCY PHYSICIAN Student in an Organized Health Care Education/Training Program; FAMILY PHYSICIAN Family Medicine
DX: G20.A1 Parkinson's disease without dyskinesia, without mention of fluctuations (principal); N17.9 Acute kidney failure, unspecified; I10 Essential (primary) hypertension; I48.0 Paroxysmal atrial fibrillation; E78.00 Pure hypercholesterolemia, unspecified; Z86.73 Personal history of transient ischemic attack (TIA), and cerebral infarction without residual deficits; Z66 Do not resuscitate
CPT/HCPCS: 70450; 70551; 74230; 80048; 80053; 80061; 81003; 81015; 82962; 85025; 86803; 87811; 92611; 93005; 97163; 97167; 97530; 99285; G0378

== ENCOUNTER → 2025-03-13 08:42 | Outpatient (REF) | payer OTHER, MEDICARE, BC, SELFPAY ==
[2025-03-13 11:19] LABS: ALT (SGPT) 15 U/L (0-50); AST (SGOT) 26 U/L (17-59); Albumin 3.4 g/dl (3.5-5.0); Alkaline Phosphatase 83 U/L (38-126); Blood Urea Nitrogen 23 mg/dl (9-20); Calcium 9.1 mg/dl (8.4-10.2); Carbon Dioxide 31 mmol/L (22-30); Chloride 106 mmol/L (98-107); Glucose 86 mg/dl (70-99); Potassium 4.1 mmol/L (3.5-5.1); Sodium 140 mmol/L (135-145); Total Bilirubin 0.5 mg/dl (0.2-1.3); eGFR > 60.00
[2025-03-13 11:20] LABS: % Basophils 0.4 % (0-2); % Eosinophils 1.7 % (0-6); % Immature Granulocytes 0.2 % (0-0.5); % Lymphocytes 25.1 % (20.5-51.1); % Monocytes 8.2 % (1.7-9.3); % Neutrophils 64.4 % (42.2-75.2); Absolute Eosinophils 0.1 10^3/uL (0-0.7); Absolute Lymphocytes 1.3 10^3/uL (1.2-3.4); Absolute Monocytes 0.4 10^3/uL (0.1-0.6); Absolute Neutrophils 3.4 10^3/uL (1.4-6.5); Hemoglobin 9.8 g/dL (13.0-18.0); Mean Corp Hgb Conc. 32.7 g/dL (33.0-37.0); Mean Corpuscular Hgb 29.3 pg (27.0-31.0); Mean Corpuscular Volume 89.6 fL (80.0-94.0); Mean Platelet Volume 12.6 fL (7.4-10.4); Nucleated Red Blood Cells % 0 % (-); Platelet Count 146 10^3/uL (130-400); Red Blood Cell Count 3.35 10^6/uL (4.70-6.10); White Blood Cell Count 5.3 10^3/uL (4.8-10.8)
[2025-03-13 11:33] LABS: Vitamin D, 25-OH*** 31.1 ng/mL (30-80)
== END ==
LOC: OLABN 08:42
PROVIDERS: ATTENDING PHYSICIAN Student in an Organized Health Care Education/Training Program
DX: G20.C Parkinsonism, unspecified (principal); F32.A Depression, unspecified; E55.9 Vitamin D deficiency, unspecified
CPT/HCPCS: 36415; 80053; 82306; 85025